=== PATIENT | female | born 1965 | race Caucasian/White ===

== ENCOUNTER 2022-10-12 12:38 | Outpatient (OUT) | payer BC, SELFPAY ==
--- NOTE | 2022-10-12 12:56 | US_ITS ---
The [address] [address] Patient Name: KIA HARDY MRN: [id number] date: 1965 Sex: F Assigned Patient Location: US Current Patient Location: US Accession/Order Number: [id number] Exam Date: 10/12/2022 12:57 Report Date: 10/13/2022 03:08 At the request of: NON-STAFF PHYSICIAN Procedure: US right upper quadrant EXAM: US right upper quadrant HISTORY: E66.09, Z68.31 CLASS 1 OBESITY COMPARISON: None. FINDINGS: Velasquez-scale and color sonography of the right upper quadrant was performed. LIVER: Diffuse increased hepatic echogenicity and hepatomegaly. Hepatic morphology is normal. Fatty sparing is noted adjacent to the gallbladder. No focal hepatic lesion is present. The imaged IVC and portal vein are patent. BILIARY: No gallstones or biliary duct dilatation. The common duct measures 0.5 cm. Sonographic Colvin sign is absent. PANCREAS: Imaged pancreas appears normal. RIGHT KIDNEY: No renal lesion, renal calculi or hydronephrosis. The right kidney measures 11.7cm in sagittal dimension. IMPRESSION: 1. Hepatomegaly and fatty liver. Hepatic morphology is normal. No suspicious hepatic lesion. 2. No biliary duct dilatation or gallstones. Electronically authenticated by: BHAVNA LESTER Date: 10/13/2022 03:08
--- NOTE | 2022-10-12 12:56 | US_ITS ---
The [address] [address] Patient Name: KIA HARDY MRN: [id number] date: 1965 Sex: F Assigned Patient Location: US Current Patient Location: Accession/Order Number: [id number] Exam Date: 10/12/2022 12:57 Report Date: 10/13/2022 08:05 At the request of: NON-STAFF PHYSICIAN Procedure: US thyroid PROCEDURE: US thyroid DATE: 10/12/2022 11:57 AM CDT COMPARISONS: None. CLINICAL INDICATION: 57 years Female E66.09, Z68.31 CLASS 1 OBESITY FINDINGS: The right lobe of the thyroid gland measures 5.4 x 1.8 x 1.0 cm. The left lobe of the thyroid gland measures 4.6 x 1.4 x 0.9 cm. The isthmus measures 4 mm in thickness. There is a 5 mm cystic area superior right lobe of thyroid, 7 mm cystic area mid right thyroid and a 3 mm cystic area upper left thyroid. These are TR 1 lesions and are considered benign. There is a 7 x 6 x 5 mm solid intermediate echogenic, solid, circumscribed nodule of the inferior left lobe of the thyroid. This is considered a TR 3 lesion (mildly suspicious). According the ACR TI RADS recommendations, no follow-up or fine needle aspiration is recommended for a lesion with these characteristics of this size. IMPRESSION: Findings as discussed above. No follow-up recommended. ACR TI-RADS (Thyroid Imaging and Reporting Data System) recommendations: TR5, highly suspicious (greater than or equal to 7 points) - FNA if greater than or equal to 1 cm, follow-up if 0.5-0.9 cm every year for 5 years TR4, moderately suspicious (4-6 points) - FNA if greater than or equal to 1.5cm, follow-up if 1-1.4 cm in 1, 2, 3 and 5 years TR3, mildly suspicious (3 points) - FNA if greater than or equal to 2.5cm, follow-up if 1.5-2.4 cm in 1, 3 and 5 years TR2, not suspicious (2 points) and TR1, benign (0 points) - No FNA or follow-up Electronically authenticated by: AISLINN MILLER Date: 10/13/2022 08:05
[2022-10-12 14:29] LABS: Thyroid Stimulating Hormone 1.613 uIU/mL (0.358-3.740)
== END 2022-10-12 12:39 ==
PROVIDERS: PCP Family Medicine; Visit Provider Family Medicine
DX: E66.09 Other obesity due to excess calories (principal); E04.1 Nontoxic single thyroid nodule; K76.0 Fatty (change of) liver, not elsewhere classified; Z68.31 Body mass index [BMI] 31.0-31.9, adult
CPT/HCPCS: 36415; 76536; 76705; 84443

== ENCOUNTER 2022-11-15 11:20 | Outpatient (OUT) | payer BC, SELFPAY ==
--- NOTE | 2022-11-15 11:55 | MM_ITS ---
Patient: KIA HARDY Exam Date: 11/15/2022 : 1965 Gender:F Ordering : Non-Staff Physician Admission #: [id number] Family : JEFF MONTE Order #: [id number] CLICK HERE TO VIEW EXAM RADIOLOGY REPORT PROCEDURE: MM TOMOSYNTHESIS SCREENING BI COMPARISON: MM SCREENING MAMMO BI, 05/31/2017. INDICATIONS: Screening Calculator Name NCI Breast Cancer Risk Assessment Tool 5 Year Breast Cancer Risk 1.10% Lifetime Breast Cancer Risk 7.20% Personal Breast Cancer No Personal Ovarian Cancer No Treatments None Family Cancers Father with mds cancer at age 76; Cousin-maternal with leukemia cancer at age 52; Cousin-maternal with prostate cancer at age 53. LOCATION: [facility] BREAST COMPOSITION: Heterogeneously dense,which may obscure small masses. FINDINGS: DIAGNOSTIC CATEGORY 1--NEGATIVE. RIGHT BREAST: No significant suspicious finding. No significant change has occurred. LEFT BREAST: No significant suspicious finding. No significant change has occurred. RECOMMENDATIONS: ROUTINE MAMMOGRAM AND CLINICAL EVALUATION IN 12 MONTHS. PLEASE NOTE: A NORMAL MAMMOGRAM DOES NOT EXCLUDE THE POSSIBILITY OF BREAST CANCER. A CLINICALLY SUSPICIOUS PALPABLE LUMP SHOULD BE BIOPSIED. Dictated by: Bhargav Freitas M.D. on 11/25/2022 at 14:09 Approved by: Bhargav Freitas M.D. on 11/25/2022 at 14:18
== END 2022-11-15 11:21 | disposition home or self-care (01) ==
PROVIDERS: PCP Family Medicine
DX: Z12.31 Encounter for screening mammogram for malignant neoplasm of breast (principal); Z80.6 Family history of leukemia; Z80.42 Family history of malignant neoplasm of prostate
CPT/HCPCS: 77063; 77067

== ENCOUNTER 2023-11-21 10:20 | Outpatient (OUT) | payer BC, SELFPAY ==
--- NOTE | 2023-11-21 10:25 | MM_ITS ---
Patient Name: KIA HARDY MR#: [id number] : 1965 Exam Date: 11/21/2023 Ordering Doctor: Non-Staff Physician RADIOLOGY REPORT PROCEDURE: MM TOMOSYNTHESIS SCREENING BI COMPARISON: MM TOMOSYNTHESIS SCREENING BI, 11/15/2022. MG MAMM SCREEN DU W CAD, 07/12/2019. MM SCREENING MAMMO BI, 05/31/2017. INDICATIONS: Screening Calculator Name NCI Breast Cancer Risk Assessment Tool 5 Year Breast Cancer Risk 1.10% Lifetime Breast Cancer Risk 7.10% Personal Breast Cancer No Personal Ovarian Cancer No Treatments None Family Cancers Father with mds cancer at age 76; Cousin-maternal with leukemia cancer at age 52; Cousin-maternal with prostate cancer at age 53. LOCATION: [facility] BREAST COMPOSITION: The breasts are heterogeneously dense,which may obscure small masses. FINDINGS: DIAGNOSTIC CATEGORY 1--NEGATIVE. RIGHT BREAST: No significant suspicious finding. No significant change has occurred. LEFT BREAST: No significant suspicious finding. No significant change has occurred. RECOMMENDATIONS: ROUTINE MAMMOGRAM AND CLINICAL EVALUATION IN 12 MONTHS. PLEASE NOTE: A NORMAL MAMMOGRAM DOES NOT EXCLUDE THE POSSIBILITY OF BREAST CANCER. A CLINICALLY SUSPICIOUS PALPABLE LUMP SHOULD BE BIOPSIED. Dictated by: Bhargav Freitas M.D. on 11/21/2023 at 14:58 Approved by: Bhargav Freitas M.D. on 11/21/2023 at 15:02
== END 2023-11-21 10:21 | disposition home or self-care (01) ==
LOC: MAMMO 10:21
PROVIDERS: PCP Family Medicine
DX: Z12.31 Encounter for screening mammogram for malignant neoplasm of breast (principal); Z80.6 Family history of leukemia; Z80.42 Family history of malignant neoplasm of prostate; Z80.8 Family history of malignant neoplasm of other organs or systems
CPT/HCPCS: 77063; 77067